=== PATIENT | male | born 1980 | race Caucasian/White ===

== ENCOUNTER 2022-04-12 08:28 | Emergency (ER) | payer BC ==
[~2022-04-12] VITALS: Ht 180.3 cm; Wt 80.0 kg
[2022-04-12 08:31] VITALS: BP 135/72
[2022-04-12] MEDS: KETOROLAC 60MG/2ML VIAL IM ONE (09:13)
[2022-04-12] MEDS ORDERED: METH-653 MT (09:53)
== END 2022-04-12 10:05 | disposition home or self-care (01) ==
LOC: ER 08:48
DX: M25.552 Pain in left hip (principal); M54.50 Low back pain, unspecified
CPT/HCPCS: 72170; 99283; J1885